=== PATIENT | female | born 1935 | race Caucasian/White ===

== ENCOUNTER 2019-07-05 10:48 | Inpatient (IN) | payer MEDICARE ==
[2019-07-05] MEDS ORDERED: 0.9 % SODIUM CHLORIDE 1000ML 1,000 ML IV ONE (10:51)
--- NOTE | 2019-07-05 10:57 | Emergency Department Record ---
History of Present Illness - General Chief complaint: GI Bleed Stated complaint: BLOODY DIARRHEA Time Seen by Provider: 07/05/19 10:50 Source: Patient Mode of Arrival: Ambulatory Limitations: No limitations - History of Present Illness Initial comments: 83 yo female presents with diarrhea for just over a week. At 6am she developed bloody diarrhea. She has some cramps and gassy feeling. No fever. She does have a history of diverticulosis in the past. No recent antibiotics. She feels weak, shaky, and light headed with standing. No chest pain or shortness of breath. She is on Plavix. Dr Saldana is her doctor. MD complaint: Other (Bloody diarrhea) -: Days(s) Quality: Other (cramps and bloating) Consistency: Intermittent Improves with: None Worsens with: Eating Context: Blood thinners Associated Symptoms: Abdominal pain, Diarrhea, Loss of appetite, Malaise, Nausea - Related Data Allergies Allergy/AdvReac Type Severity Reaction Status Date / Time codeine Allergy Intermediate NAUSEA Verified 07/05/19 10:56 Allergies: Allergy Unknown PT UNSURE Uncoded 07/29/16 09:58 OF REACTION Review of Systems Constitutional: Reports: Malaise, Weakness. Denies: Chills, Fever Eyes: Denies: Eye discharge ENT: Denies: Congestion, Throat pain Respiratory: Denies: Cough, Dyspnea, Hemoptysis, Wheezes Cardiovascular: Denies: Chest pain, Dyspnea on exertion, Palpitations, Syncope Endocrine: Reports: Fatigue. Denies: Polydipsia, Polyuria Gastrointestinal: Reports: Abdominal pain, Diarrhea, Hematochezia. Denies: Constipation, Hematemesis Genitourinary: Denies: Dysuria, Frequency, Urgency Musculoskeletal: Denies: Arthralgia, Back pain, Myalgia Skin: Denies: Bruising, Change in color, Rash Neurological: Denies: Headache Psychiatric: Denies: Anxiety Hematological/Lymphatic: Denies: Blood Clots, Easy bleeding, Easy bruising Past Medical History - SOCIAL HISTORY Smoking Status: Never smoker Drug Use: None - CARDIOVASCULAR Hx Cardio Disorders: Yes Hx Hypertension: Yes - NEURO Hx Neuro Disorders: Yes Hx CVA: Yes (2000) - GI Hx GI Disorders: No - Hx Genitourinary Disorders: No - ENDOCRINE Hx Endocrine Disorders: No - MUSCULOSKELETAL Hx Musculoskeletal Disorders: No - PSYCH Hx Psych Problems: No - HEMATOLOGY/ONCOLOGY Hx Hematology/Oncology Disorders: No Family Medical History Hx Heart Disease: Father Physical Exam - General General Appearance: Alert, Oriented x3, Cooperative, No acute distress Limitations: No limitations - Head Head exam: Atraumatic, Normal inspection - Eye Eye exam: Normal appearance, PERRL. negative: Conjunctival injection, Scleral icterus - ENT ENT exam: Normal exam, Mucous membranes moist Ear exam: Normal external inspection Nasal Exam: Normal inspection Mouth exam: Normal external inspection - Neck Neck exam: Normal inspection - Respiratory Respiratory exam: Normal lung sounds bilaterally. negative: Accessory muscle use, Prolonged expiratory, Respiratory distress, Wheezes - Cardiovascular Cardiovascular Exam: Regular rate, Normal rhythm, Normal heart sounds - GI/Abdominal GI/Abdominal exam: Soft, Tenderness (mild epigastric tenderness). negative: Distended, Guarding, Rebound, Rigid - Rectal Rectal exam: Bloody stool, Heme (+) stool, Normal inspection. negative: Hemorrhoids, Mass - exam: Deferred - Extremities Extremities exam: Normal inspection. negative: Pedal edema, Tenderness - Back Back exam: Denies: CVA tenderness (R), CVA tenderness (L) - Neurological Neurological exam: Alert, Oriented X3 - Psychiatric Psychiatric exam: Normal affect, Normal mood. negative: Agitated, Anxious - Skin Skin exam: Dry, Intact, Normal color, Warm Course - Reevaluation(s) Reevaluation #1: 07/05/19 11:55 The labs were reviewed Hgb is 11.1 prior 12.6 on 03/22/2019 CR is 1.6 prior was 1.5 BUN is 39 prior was 25 07/05/19 13:45 Patient had a dark bloody stool in the ED 07/05/19 14:[address] scan was reviewed. Stool throughout the colon. No inflammatory changes or bowel wall thickening. No obstructions. Given the bloody diarrhea, on Plavix, hx of renal insufficiency I recommend admission. Dr Mccormick was called and message left for a call back 07/05/19 14:12 The case was discussed with Dr Mccormick Hold the plavix No fever or leukocytosis so will wait and check stool studies prior to antibiotics Hold BP medications as needed Medical Decision Making - Lab Data Result diagrams: 07/05/19 11:05 07/05/19 11:05 Disposition Disposition: Admit Clinical Impression: Diarrhea Qualifiers: Diarrhea type: unspecified type Qualified Code(s): R19.7 - Diarrhea, unspecified GI bleed Qualifiers: GI bleed type/associated pathology: unspecified gastrointestinal hemorrhage type Qualified Code(s): K92.2 - Gastrointestinal hemorrhage, unspecified Disposition: Still a Patient at [facility] Decision to Admit: Admit from ER Decision to Admit Date: 07/05/19 Decision to Admit Time: 14:08 Condition: (2) Stable Forms: Patient Portal Access Time of Disposition: 14:08 Quality - Quality Measures Quality Measures: N/A - Blood Pressure Screening Does Patient Have Any of the Following: Active Dx of HTN Blood Pressure Classification: Hypertensive Reading Systolic Measurement: 136 Diastolic Measurement: 99 Screening for High Blood Pressure: Patient Exclusion, Hx of HTN [[id number]]
[2019-07-05 11:23] LABS: BASO % 0.3 % (0-6); GRAN % 79.2 % (47-80); HEMATOCRIT 33.7 % (35.0-47.0); HEMOGLOBIN 11.1 gm/dl (11.6-16.0); LYMPH % 11.8 % (16-45); MEAN CELL VOLUME 97.7 fl (81-97); MEAN CORPUSCULAR HGB CONC 32.9 g/dl (32-36); MEAN PLATELET VOLUME 10.8 fl (7.4-10.4); MONO % 6.7 % (0-9); PLATELET COUNT 284 K/uL (130-400); RED BLOOD COUNT 3.45 M/uL (3.80-5.40); WHITE BLOOD COUNT W/O DIFF 11.7 K/uL (4.2-12.2)
[2019-07-05 11:25] LABS: MEAN CORPUSCULAR HEMOGLOBIN 32.1 pg (27-33)
[2019-07-05 11:29] LABS: PARTIAL THROMBOPLASTIN TIME 23.4 SECONDS (24.5-39.1); PROTHROMBIN TIME (PATIENT) 10.3 SECONDS (9.5-12.1)
[2019-07-05 11:31] LABS: BILIRUBIN,TOTAL 0.3 mg/dL (0.2-1.0); CREATININE 1.6 mg/dL (0.5-0.9)
[2019-07-05 11:32] LABS: TOTAL PROTEIN 6.8 g/dL (6.6-8.7)
[2019-07-05 11:37] LABS: ALB/GLOB RATIO 1.4 (1.1-1.8)
[2019-07-05 14:06] LABS: ROTOVIRUS NOT DETECTED (NOT DETECT)
[2019-07-05 14:18] LABS: CRYPTOSPORIDIUM PARVUM ANTIGEN NOT DETECTED (NOT DETECT)
[2019-07-05 15:16] LABS: MOLECULAR C DIFF TOXIN SCREEN NOT DETECTED (NOT DETECT)
[2019-07-05] MEDS ORDERED: ONDANSETRON HCL IV 4 MG/2 ML VIAL IVP PRN (16:22)
[2019-07-05] MEDS ORDERED: 0.9 % SODIUM CHLORIDE 1000ML 1,000 ML IV PRN (16:22)
[2019-07-05] MEDS ORDERED: AL HYDROX/MAG HYDROX 30ML UD PO ONE (18:02)
[2019-07-05 18:39] LABS: HEMATOCRIT 29.9 % (35.0-47.0); HEMOGLOBIN 9.8 gm/dl (11.6-16.0); MEAN CELL VOLUME 97.7 fl (81-97); MEAN CORPUSCULAR HGB CONC 32.8 g/dl (32-36); MEAN PLATELET VOLUME 10.6 fl (7.4-10.4); PLATELET COUNT 245 K/uL (130-400); RED BLOOD COUNT 3.06 M/uL (3.80-5.40); WHITE BLOOD COUNT W/O DIFF 11.3 K/uL (4.2-12.2)
[2019-07-05 18:55] LABS: PLATELET ESTIMATE NORMAL (NORMAL)
--- NOTE | 2019-07-06 05:13 | CT SCAN REPORT ---
EXAM: CT OF THE ABDOMEN AND PELVIS WITHOUT IV CONTRAST, BUT WITH ORAL CONTRAST HISTORY: THIS IS AN 83-YEAR-OLD FEMALE WITH DIARRHEA FOR ONE WEEK, BLOATING, CRAMPING, AND BLOOD STOOL TODAY. ABDOMINAL PAIN FOR ONE WEEK. LOW GFR. TECHNIQUE: CT of the abdomen and pelvis was conducted without IV contrast with reconstruction of coronal and sagittal planes. 15 ml of Gastroview was administered. Comparison: No relevant priors available for comparison. FINDINGS: The lung bases are clear. A small hiatal hernia is present. A moderate amount of gas and fluid is present throughout the colon with a small amount of stool at the level of the rectum. Minimal diverticulosis is present. No significant colonic wall thickening or adjacent inflammatory fat stranding is identified. No small bowel obstruction is identified. There is a small to moderate amount of gas present throughout the small bowel. The liver, spleen, adrenals, kidneys and pancreas appear within normal limits. A few splenic calcific granulomas are present. The gallbladder is surgically absent. No biliary ductal dilatation. The aorta is normal in size and contains at least moderate calcified atherosclerosis especially involving the renal artery origins. No significant adenopathy, free fluid, or free air. The urinary bladder appears within normal limits. No dominant pelvic mass. The abdominal wall appears intact. The bones appear intact, mild degenerative changes in the lower lumbar spine are present. IMPRESSION: 1. MODERATE COLONIC GAS AND FLUID AT LEAST TO THE LEVEL OF THE SIGMOID COLON WITH MILD RECTAL STOOL. MILD DIVERTICULOSIS. 2. NO SUSPICIOUS COLONIC BOWEL WALL THICKENING OR INFLAMMATORY FAT STRANDING. NO FREE AIR, FREE FLUID OR ACUTE PROCESS EVIDENT. JOB NUMBER: [id number] [facility]
--- NOTE | 2019-07-06 14:52 | History and Physical Report ---
CHIEF COMPLAINT: GI bleed. HISTORY OF PRESENT ILLNESS: This 83-year-old female stated she developed bloody diarrhea this morning at 6 a.m., had about 10-15 bloody stools, came to the emergency department at 11 a.m. today, seen by Dr. Jaramillo who evaluated her and admitted her to the hospital for GI bleed. She was also having severe abdominal pain, intermittent cramping. She said it is as bad as having a baby. She had diarrhea a week prior to this before. This morning when she noticed the blood in the stool, she came to the hospital. She had a GI workup about March [address] Mendieta's PA at [facility] for diarrhea. It was felt scope was not necessary at this time, probably because of her age. Her last scope was 6 years ago, colonoscopy, done by Dr. Mendieta. Today at my evaluation at 7 p.m., she is also vomiting yellow bile. No blood in the vomit. Her hemoglobin in the emergency department at 11 a.m. was 11.1 and at 6:30 p.m. today 9.8. Dropped in 9 hours. The patient was complaining of abdominal pain. She has guarding and some rebound with palpation. PAST MEDICAL HISTORY: Hypertension. She had a stroke in 2000 and is on Plavix. She also has hypercholesterolemia. PAST SURGICAL HISTORY: Cholecystectomy in 2000. MEDICATIONS: 1. Lovastatin 20 mg daily. 2. Losartan/hydrochlorothiazide 100/25 one tablet daily. 3. Plavix 75 mg daily. 4. Clonidine 0.1 mg b.i.d. ALLERGIES: CODEINE. FAMILY/PSYCHOSOCIAL HISTORY: Unremarkable. Father has heart disease. Never smoked. No alcohol use. REVIEW OF SYSTEMS: HEENT: No upper respiratory infection symptoms, cough, cold, or congestion. Cardiovascular: No chest pain, palpitations, or arrhythmia. Respiratory: No cough, cold, or congestion. Never smoked. Gastrointestinal: See Chief Complaint. She has abdominal pain, diarrhea, bloody diarrhea, bright red, and she is vomiting bile. No blood in her vomit. Genitourinary: No dysuria, hematuria, frequency, or burning on urination. Musculoskeletal: Moving all 4 extremities. Neurological: She had a history of a CVA in 2000. Nothing since then. Neurologically intact at this time. Moving all 4 extremities. Conversation is alert and oriented x3. No headache. [employer]: History unremarkable. Endocrine: No diabetes or thyroid disease. Integument: No rash, ulcers, change in moles, or yellow skin. PHYSICAL EXAMINATION: VITALS: Height 5 feet 1 inch, weight 155 pounds. Blood pressure 209/89, pulse 80, respiratory rate 18, pulse ox 98%. HEENT: Pupils are equal, round, and reactive to light and accommodation. Extraocular muscles are intact. Throat is clear. Nose is clear. Tympanic membranes are saldaña. NECK: Supple. No jugular venous distention. No hepatojugular reflux. No carotid bruits. Thyroid is smooth. CARDIOVASCULAR: Regular rate and rhythm without murmurs, clicks, rubs, or gallops. RESPIRATORY: Clear to auscultation and percussion. ABDOMEN: Painful on palpation. Some rebound. No rigidity. Guarding is present in the periumbilical and right side of her abdomen. EXTREMITIES: No pitting edema. No cyanosis, no clubbing. Full range of motion. Peripheral pulses are good. BREASTS: Exam deferred. GYNECOLOGICAL: Exam deferred. RECTAL: Exam deferred. Looked at the stool in the toilet which was bright red blood. GENITALIA: Deferred. NEUROLOGIC: Cranial nerves II-XII intact. No gross defects. Sensation normal, strength normal. Deep tendon reflexes equal bilaterally with Babinski negative. MENTAL STATUS: Alert and oriented x3. IMPRESSION: 1. Gastrointestinal bleed. 2. Bloody diarrhea. 3. Abdominal pain. 4. Rule out ischemic bowel. PLAN: At this point, because of her age and her abdominal pain with the GI bleed, I am concerned this patient will need to see both a surgeon and a GI doctor in the next 12-24 hours. Discussed the case with Dr. Ham. Will transfer to [facility] for further care. MARIELENA
--- NOTE | 2019-07-08 11:11 | Discharge Summary ---
DATE: 07/06/2019 DATE OF DISCHARGE: 07/05/2019 DISCHARGE DIAGNOSES: 1. Gastrointestinal bleeding. 2. Bloody diarrhea. 3. Abdominal pain. 4. Rule out ischemic bowel. ATTENDING PHYSICIAN: Jorge Mccormick DO REASON FOR HOSPITALIZATION: An 83-year-old female who stated that she had bloody diarrhea starting this morning at 6 a.m., about 10-15 bloody stools throughout the day. She has had a week of diarrhea without blood. Came to the ER when she saw blood. Dr. Jaramillo evaluated her, admitted her to the hospital for GI bleed. She had a previous workup for diarrhea by Dr. Mendieta's PA [place] [facility]. No scopes were done at that time probably because of her age. Her last colonoscopy was 6 years ago, according to the patient's memory. Today at my evaluation at 7 p.m., she is vomiting yellow bile. No blood in the vomit. Her hemoglobin dropped to 9.8 from 11.1 over 9 hours and she had bright red bloody stools with a large amount of blood in the toilet. She has guarding and rebound with palpation of her abdomen. Because of these findings, I felt that she needed to see GI and possible General Surgery for ruling out ischemic bowel or further procedure to help stop her bleeding or identify the source of her bleeding. THERAPY PROVIDED: IV fluids and observation. HOSPITAL COURSE: The patient basically is continuing to have bloody stools. CONDITION ON DISCHARGE: Stable but guarded condition because of her comorbidities and age. The patient was transferred to [facility] for further care, admitted to Dr. Ham's service. MARIELENA
== END 2019-07-05 22:15 | disposition short-term general hospital (02) | DRG 379 ==
LOC: ER 10:48 → MEDSURG 15:52
PROVIDERS: ADMIT Emergency Medicine; ATTEND Emergency Medicine
DX: K92.2 Gastrointestinal hemorrhage, unspecified (principal); R10.9 Unspecified abdominal pain; R11.2 Nausea with vomiting, unspecified; I10 Essential (primary) hypertension; E78.00 Pure hypercholesterolemia, unspecified; R11.0 Nausea; Z79.01 Long term (current) use of anticoagulants; N28.9 Disorder of kidney and ureter, unspecified; Z90.49 Acquired absence of other specified parts of digestive tract; Z66 Do not resuscitate; Z86.73 Personal history of transient ischemic attack (TIA), and cerebral infarction without residual deficits
CPT/HCPCS: 74176; 80053; 82272; 85025; 85027; 85610; 85730; 87329; 87425; 87493; 89055; 99236; 99285; J7030